=== PATIENT | female | born 1965 | race African-American/Black ===

== ENCOUNTER 2022-07-25 18:42 | Emergency (ER) | payer MEDICAID, OTHER ==
[~2022-07-25] VITALS: Ht 162.6 cm; Wt 59.0 kg
[2022-07-26] MEDS ORDERED: METOCLOPRAMIDE HCL 10MG/2ML VIAL IV NR (01:45)
[2022-07-26] MEDS ORDERED: SODIUM CHLORIDE 0.9% 1,000 ML IV NR (01:45)
[2022-07-26] MEDS ORDERED: DIPHENHYDRAMINE 50MG/ML VIAL IV NR (01:45)
[2022-07-26 02:11] LABS: CLARITY URINE CLEAR (CLEAR); COLOR URINE YELLOW (YELLOW); KETONES URINE TRACE (NEGATIVE); LEUKOCYTE ESTERASE URINE 3+ (NEGATIVE); NITRITE URINE NEGATIVE (NEGATIVE); OCCULT BLOOD URINE NEGATIVE (NEGATIVE); PH URINE 6.5 (4.5-8.0); PROTEIN URINE NEGATIVE (NEGATIVE); SPECIFIC GRAVITY URINE 1.016 (1.005-1.030)
[2022-07-26 02:21] LABS: *AMPHETAMINES SCREEN URINE NEGATIVE (NEGATIVE); *BARBITURATES SCREEN URINE NEGATIVE (NEGATIVE); *BENZODIAZEPINES SCREEN URINE NEGATIVE (NEGATIVE); *COCAINE SCREEN URINE NEGATIVE (NEGATIVE); CANNABINOID URINE SCREEN NEGATIVE (NEGATIVE); METHADONE URINE SCREEN NEGATIVE (NEGATIVE); OPIATES URINE SCREEN NEGATIVE (NEGATIVE); PHENCYCLIDINE URINE SCREEN NEGATIVE (NEGATIVE)
[2022-07-26 02:38] LABS: EOSINOPHILS % 5.1 % (0.0-5.0); HEMATOCRIT. 40.1 % (36.0-48.0); HEMOGLOBIN. 13.8 g/dL (12.0-16.0); LYMPHOCYTES % 30.7 % (20.0-50.0); MEAN CORPUSCULAR VOLUME 81.4 fL (81.0-99.0); MEAN PLATELET VOLUME 9.2 fl (7.4-10.4); MONOCYTES % 6.4 % (2.0-8.0); NEUTROPHILS % 56.8 % (40.0-76.0); PLATELET 246 x1000/uL (130-400); RED BLOOD CELL COUNT 4.92 mill/uL (4.2-5.4); RED CELL DISTRIBUTION WIDTH 13.7 % (11.6-14.6)
[2022-07-26 02:43] LABS: CHLORIDE 105 mEq/L (98-107)
[2022-07-26 02:52] LABS: ETHANOL BLOOD < 10 mg/dL
[2022-07-26 02:58] LABS: HCG SCREEN NEGATIVE
[2022-07-26] MEDS ORDERED: CEPH500C2 MT (05:56)
[2022-07-26] MEDS ORDERED: ACET-2708 MT (05:56)
[2022-07-26] MEDS ORDERED: METO-293 MT (05:56)
[2022-07-26 06:55] VITALS: BP 142/85
[2022-08-01] MEDS ORDERED: LIP40 PO ×2 (11:59)
[2022-08-01] MEDS ORDERED: LOSA25TA3 PO (11:59)
[2022-08-01] MEDS ORDERED: ASPI-1160 PO (11:59)
== END 2022-07-26 06:57 | disposition home or self-care (01) ==
LOC: ER 18:52
DX: R51.9 Headache, unspecified (principal); I10 Essential (primary) hypertension
CPT/HCPCS: 36415; 70450; 71045; 80053; 80305; 80320; 81003; 83690; 83880; 84484; 84703; 85025; 86850; 86900; 86901; 93005; 96361; 96374; 96375; 99285; J1200; J2765; Z7610; G0480

== ENCOUNTER 2022-07-29 20:03 | Inpatient (IN) | payer MEDICAID ==
[~2022-07-29] VITALS: Ht 162.6 cm; Wt 69.4 kg
[~2022-07-29 20:03] MED LIST: ACET-2708 MT; CEPH500C2 MT; METO-293 MT
[2022-07-29] MEDS ORDERED: SODIUM CHLORIDE 0.9% 1,000 ML IV ONE (20:45)
[2022-07-29] MEDS ORDERED: METOCLOPRAMIDE HCL 10MG/2ML VIAL IV NR (20:45)
[2022-07-29] MEDS ORDERED: DIPHENHYDRAMINE 50MG/ML VIAL IV NR (20:45)
[2022-07-29 21:13] LABS: BASOPHILS % 0.9 % (0.0-2.0); EOSINOPHILS % 3.4 % (0.0-5.0); HEMATOCRIT. 39.5 % (36.0-48.0); HEMOGLOBIN. 13.7 g/dL (12.0-16.0); LYMPHOCYTES % 23.4 % (20.0-50.0); MEAN CORPUSCULAR VOLUME 80.8 fL (81.0-99.0); MEAN PLATELET VOLUME 8.5 fl (7.4-10.4); MONOCYTES % 7.7 % (2.0-8.0); NEUTROPHILS % 64.6 % (40.0-76.0); PLATELET 268 x1000/uL (130-400); RED BLOOD CELL COUNT 4.89 mill/uL (4.2-5.4); RED CELL DISTRIBUTION WIDTH 13.6 % (11.6-14.6)
[2022-07-29 21:22] LABS: CHLORIDE 105 mEq/L (98-107)
[2022-07-29 21:33] LABS: ETHANOL BLOOD < 10 mg/dL
[2022-07-29 22:42] LABS: *AMPHETAMINES SCREEN URINE NEGATIVE (NEGATIVE); *BARBITURATES SCREEN URINE NEGATIVE (NEGATIVE); *BENZODIAZEPINES SCREEN URINE NEGATIVE (NEGATIVE); *COCAINE SCREEN URINE NEGATIVE (NEGATIVE); CANNABINOID URINE SCREEN NEGATIVE (NEGATIVE); METHADONE URINE SCREEN NEGATIVE (NEGATIVE); OPIATES URINE SCREEN NEGATIVE (NEGATIVE); PHENCYCLIDINE URINE SCREEN NEGATIVE (NEGATIVE)
[2022-07-30] MEDS ORDERED: ASPIRIN 325MG EC TABLET PO NR (01:00)
[2022-07-30] MEDS ORDERED: ATORVASTATIN CALCIUM 40MG TABLET PO NR (01:00)
[2022-07-30] MEDS ORDERED: CLONIDINE 0.1MG TABLET PO NR (01:30)
[2022-07-30] MEDS ORDERED: IPRATROPIUM/ALBUTEROL 0.5-3(2.5)MG/3ML NEB HHN PRN (01:30)
[2022-07-30] MEDS ORDERED: ONDANSETRON HCL 4MG/2ML INJ IV PRN (01:30)
[2022-07-30] MEDS ORDERED: CLONIDINE 0.1MG TABLET PO PRN (01:30)
[2022-07-30] MEDS ORDERED: ACETAMINOPHEN 325MG TABLET PO PRN ×2 (01:30)
[2022-07-30] MEDS ORDERED: ASPIRIN 81MG EC TABLET PO NR (03:30)
[2022-07-30] MEDS: DEXT 5%/0.9% NACL 1,000 ML IV SCH (03:31)
[2022-07-30 03:32] LABS: PHOSPHORUS 3.2 mg/dL (2.5-4.9)
[2022-07-30 04:09] LABS: VITAMIN B12 SERUM 976 pg/mL (211-911)
[2022-07-30 04:51] LABS: CREATINE KINASE MB FRACTION 1.1 ng/mL (0.5-3.6)
[2022-07-30] MEDS ORDERED: NIFEDIPINE XL 30MG TAB PO SCH (09:00)
[2022-07-30] MEDS: ENOXAPARIN 40MG/0.4ML SYR SUBCUT SCH (10:39)
[2022-07-30] MEDS: PANTOPRAZOLE SODIUM 40 MG/VIAL IV SCH (10:40)
[2022-07-30 18:08] VITALS: BP 141/85
[2022-07-30 18:10] VITALS: BP 141/85
[2022-07-30 20:00] VITALS: BP 158/93
[2022-07-30] MEDS ORDERED: IPRATROPIUM BROMIDE (0.02%) 0.5MG/2.5ML NEB HHN PRN (20:15)
[2022-07-30] MEDS ORDERED: ALBUTEROL (0.083%) 2.5MG/3ML NEB HHN PRN (20:15)
[2022-07-30] MEDS: ATORVASTATIN CALCIUM 40MG TABLET PO SCH (20:28)
[2022-07-31] VITALS: BP 113/76
[2022-07-31 04:00] VITALS: BP 133/81
[2022-07-31] MEDS: DEXT 5%/0.9% NACL 1,000 ML IV SCH (05:40)
[2022-07-31 06:27] LABS: BASOPHILS % 1.1 % (0.0-2.0); EOSINOPHILS % 8.4 % (0.0-5.0); HEMOGLOBIN. 12.5 g/dL (12.0-16.0); LYMPHOCYTES % 37.6 % (20.0-50.0); MEAN CORPUSCULAR HEMOGLOBIN 28.2 pg (28.0-32.0); MEAN PLATELET VOLUME 9.3 fl (7.4-10.4); MONOCYTES % 7.4 % (2.0-8.0); NEUTROPHILS % 45.5 % (40.0-76.0); PLATELET 229 x1000/uL (130-400); RED BLOOD CELL COUNT 4.44 mill/uL (4.2-5.4); RED CELL DISTRIBUTION WIDTH 13.6 % (11.6-14.6)
[2022-07-31 07:59] LABS: HEPATITIS B SURFACE ANTIGEN NEGATIVE
[2022-07-31 08:00] VITALS: BP 126/83
[2022-07-31] MEDS: ENOXAPARIN 40MG/0.4ML SYR SUBCUT SCH (09:00)
[2022-07-31] MEDS: PANTOPRAZOLE SODIUM 40 MG/VIAL IV SCH (09:17)
[2022-07-31 11:26] LABS: CHLORIDE 109 mEq/L (98-107)
[2022-07-31 11:40] LABS: HDL CHOLESTEROL 68 mg/dL (40-59); LDL CHOLESTEROL 97 mg/dL (5-100); T4 FREE 1.28 ng/dL (0.76-1.46)
[2022-07-31 12:00] VITALS: BP 130/85
[2022-07-31 16:00] VITALS: BP 131/78
[2022-07-31] MEDS ORDERED: LORAZEPAM 0.5MG TABLET PO PRN (17:30)
[2022-07-31] MEDS: LOSARTAN POTASSIUM 25 MG TABLET PO SCH (18:33)
[2022-07-31 20:00] VITALS: BP 135/83
[2022-07-31] MEDS: ATORVASTATIN CALCIUM 40MG TABLET PO SCH (21:09)
[2022-08-01] VITALS: BP 128/72
[2022-08-01 04:23] VITALS: BP 111/58
[2022-08-01 08:00] VITALS: BP 125/61
[2022-08-01] MEDS ORDERED: ASPIRIN 81MG TABLET PO SCH (09:00)
[2022-08-01] MEDS ORDERED: FAMOTIDINE 20MG/2ML VIAL IV SCH (09:00)
[2022-08-01] MEDS: ENOXAPARIN 40MG/0.4ML SYR SUBCUT SCH (09:28)
[2022-08-01] MEDS: LOSARTAN POTASSIUM 25 MG TABLET PO SCH (09:28)
[2022-08-01] MEDS ORDERED: LOSA25TA3 PO (11:59)
[2022-08-01] MEDS ORDERED: ASPI-1160 PO (11:59)
[2022-08-01] MEDS ORDERED: LIP40 PO ×2 (11:59)
[2022-08-01 12:17] VITALS: BP 127/80
== END 2022-08-01 12:50 | disposition home or self-care (01) | DRG 58 ==
LOC: ER 20:03 → EDBEDREQ 07-30 00:34 → EDBEDREQTM 07-30 00:34 → 7WST 07-30 01:36 → SUPCPDRO 07-30 07:48
PROVIDERS: ADMIT Internal Medicine; ATTEND Internal Medicine
DX: R20.0 Anesthesia of skin (principal); F41.9 Anxiety disorder, unspecified; R51.9 Headache, unspecified; I10 Essential (primary) hypertension; R73.9 Hyperglycemia, unspecified; Z79.82 Long term (current) use of aspirin; Z79.899 Other long term (current) drug therapy
CPT/HCPCS: 36415; 70551; 71045; 80053; 80061; 80305; 80320; 82550; 82553; 82607; 83036; 83735; 83880; 84100; 84439; 84443; 84481; 84484; 85025; 86803; 87340; 93005; 93306; 93880; 97162; 99285; C9113; J1200; J1650; J2765; J3490; G0480

== ENCOUNTER 2022-08-14 05:57 | Emergency (ER) | payer MEDICAID, OTHER ==
[~2022-08-14] VITALS: Ht 162.6 cm; Wt 58.0 kg
[~2022-08-14 05:57] MED LIST changes: +ASPI-1160 PO; -CEPH500C2 MT; +LOSA25TA3 PO; -METO-293 MT
[2022-08-14 07:27] LABS: CLARITY URINE CLEAR (CLEAR); COLOR URINE YELLOW (YELLOW); KETONES URINE TRACE (NEGATIVE); LEUKOCYTE ESTERASE URINE 2+ (NEGATIVE); NITRITE URINE NEGATIVE (NEGATIVE); OCCULT BLOOD URINE NEGATIVE (NEGATIVE); PROTEIN URINE NEGATIVE (NEGATIVE); SPECIFIC GRAVITY URINE 1.007 (1.005-1.030); UROBILINOGEN URINE 0.2 E.U./dL (0.2-1.0)
[2022-08-14 07:29] LABS: BASOPHILS % 0.8 % (0.0-2.0); EOSINOPHILS % 2.5 % (0.0-5.0); HEMATOCRIT. 39.7 % (36.0-48.0); HEMOGLOBIN. 13.2 g/dL (12.0-16.0); LYMPHOCYTES % 21.2 % (20.0-50.0); MEAN CORPUSCULAR HEMOGLOBIN 27.4 pg (28.0-32.0); MEAN CORPUSCULAR VOLUME 82.2 fL (81.0-99.0); MEAN PLATELET VOLUME 9.2 fl (7.4-10.4); MONOCYTES % 5.1 % (2.0-8.0); NEUTROPHILS % 70.4 % (40.0-76.0); PLATELET 268 x1000/uL (130-400); RED BLOOD CELL COUNT 4.83 mill/uL (4.2-5.4); RED CELL DISTRIBUTION WIDTH 13.8 % (11.6-14.6)
[2022-08-14 07:34] LABS: CHLORIDE 105 mEq/L (98-107)
[2022-08-14] MEDS ORDERED: MAGNESIUM/ALUMINUM HYDROXIDE/SIMETHICONE 30ML UDC PO STA (09:47)
[2022-08-14] MEDS ORDERED: DICYCLOMINE 10 MG/5 ML ORAL SYR PO STA (09:47)
[2022-08-14] MEDS ORDERED: VISCOUS LIDOCAINE 2% 15 ML UDC PO STA (09:47)
[2022-08-14 09:49] VITALS: BP 155/82
[2022-08-14] MEDS ORDERED: OMEP40CA20 MT (09:49)
== END 2022-08-14 10:59 | disposition home or self-care (01) ==
LOC: ER 05:57
DX: R10.13 Epigastric pain (principal); I10 Essential (primary) hypertension; Z98.890 Other specified postprocedural states
CPT/HCPCS: 36415; 74176; 80053; 81003; 85025; 93005; 99285

== ENCOUNTER 2022-08-16 18:37 | Emergency (ER) | payer MEDICAID ==
[~2022-08-16] VITALS: Ht 320 cm; Wt 60.0 kg
[~2022-08-16 18:37] MED LIST changes: +OMEP40CA20 MT
[2022-08-16 20:42] LABS: BASOPHILS % 0.7 % (0.0-2.0); EOSINOPHILS % 4.2 % (0.0-5.0); HEMATOCRIT. 37.1 % (36.0-48.0); LYMPHOCYTES % 29.4 % (20.0-50.0); MEAN CORPUSCULAR HEMOGLOBIN 28.7 pg (28.0-32.0); MEAN CORPUSCULAR VOLUME 81.9 fL (81.0-99.0); MEAN PLATELET VOLUME 9.1 fl (7.4-10.4); NEUTROPHILS % 58.7 % (40.0-76.0); PLATELET 237 x1000/uL (130-400); RED BLOOD CELL COUNT 4.53 mill/uL (4.2-5.4); RED CELL DISTRIBUTION WIDTH 13.6 % (11.6-14.6)
[2022-08-16 20:57] LABS: CHLORIDE 104 mEq/L (98-107)
[2022-08-16 20:58] LABS: INR 1.1; PROTHROMBIN TIME 11.4 sec (9.6-11.0)
[2022-08-16] MEDS ORDERED: VISCOUS LIDOCAINE 2% 15 ML UDC MM STA (21:24)
[2022-08-16] MEDS ORDERED: ONDANSETRON HCL 4MG/2ML INJ IV ONE (21:30)
[2022-08-16] MEDS ORDERED: PANTOPRAZOLE SODIUM 40 MG/VIAL IV ONE (21:30)
[2022-08-16] MEDS ORDERED: MAGNESIUM/ALUMINUM HYDROXIDE/SIMETHICONE 30ML UDC PO ONE (21:30)
[2022-08-16] MEDS ORDERED: MORPHINE SULFATE 2 MG/ML CPJ (NOT FOR IM USE) IV ONE (21:30)
[2022-08-16] MEDS ORDERED: VISCOUS LIDOCAINE 2% 15 ML UDC PO STA (21:47)
[2022-08-16 22:23] VITALS: BP 186/80
== END 2022-08-16 23:25 | disposition home or self-care (01) ==
LOC: ER 18:37
DX: K21.9 Gastro-esophageal reflux disease without esophagitis (principal); K29.70 Gastritis, unspecified, without bleeding
CPT/HCPCS: 36415; 71045; 80053; 83690; 83880; 84484; 85025; 85610; 93005; 96374; 96375; 99285; C9113; J2405; Z7610; J2270